=== PATIENT | male | born 1975 | race Caucasian/White ===

== ENCOUNTER 2019-07-14 06:00 | Day surgery (SDC) | payer OTHER ==
[~2019-07-14] VITALS: Ht 188 cm; Wt 83.9 kg
--- NOTE | ~2019-07-14 | O ---
[facility] [place] [address] OPERATIVE REPORT Name: PEREZ LAW Room #: 150-2 [facility] M..#: [id number] Admission: 07/14/19 Attend Phys: Gabriele Zee MD Discharge: Date of : 79 Report #: [id number] THIS REPORT FOR: //name// CC: FAM unknown Gabriele Zee DATE OF SERVICE: 07/14/2019 PREOPERATIVE DIAGNOSES: 1. Right ankle instability and synovitis. 2. Right ankle osteochondral lesion of the talus. POSTOPERATIVE DIAGNOSES: 1. Right ankle instability and synovitis. 2. Right ankle osteochondral lesion of the talus. PROCEDURE: 1. Right ankle arthroscopic debridement with synovectomy. 2. Right ankle microfracture osteochondral lesion with placement of BioCartilage and platelet-rich plasma. 3. Right ankle Brostrom-Woody lateral ligament reconstruction. SURGEON: Dr. Gabriele Zee. AUTOGLAZIER: Argelia Camejo. ANESTHESIA: General. ESTIMATED BLOOD LOSS: Minimal. DRAINS: No drains. TOURNIQUET TIME: One hour. DESCRIPTION OF PROCEDURE: The patient was brought to the operating room where he was placed under general anesthesia. Once under adequate general anesthesia, his right lower extremity was placed into the arthroscopic thigh support. The right lower extremity was then prepped and draped in sterile manner. The extremity was elevated, exsanguinated, tourniquet placed to [address] [facility] ankle distractor was then placed. An anteromedial and anterolateral arthroscopic portal was made in the usual fashion. Examination of the joint noted significant synovitis in the infra-syndesmotic region, synovectomy was performed there. There was a central located osteochondral lesion of the talus approximately 8 mm in diameter. This was debrided with the shaver to good bleeding subchondral bone and subsequently a microfracture pick was utilized to make 4 passes into the subchondral bone. Good bleeding was achieved with this. [facility] [address] [place] [address] OPERATIVE REPORT Name: PEREZ LAW Room #: 150-2 [facility] M..#: [id number] Admission: 07/14/19 Attend Phys: Gabriele Zee MD Discharge: Date of : 79 Report #: [id number] The wound was irrigated copiously and the irrigation was then removed from the joint. A wick was used to dry the region. Concurrently, the patient had his blood drawn, which was spun down to platelet-rich plasma on the back table. This was then mixed together mixed with the BioCartilage to form slurry. Once complete, the platelet-rich plasma/BioCartilage slurry was then placed into the osteochondral lesion, was then subsequently fixed into place with fibrin glue. Excellent fixation was achieved and verified post-application. The wound was irrigated copiously and arthroscopic equipment was removed. The extremity was removed from the arthroscopic thigh support. A curvilinear incision was made just distal to the fibula. This was dissected down through the soft tissue to the inferior extensor retinaculum, which was identified and tagged for later use. The anterior talofibular ligament and calcaneofibular ligament were then subsequently incised through the mid portions and repaired in shortened position with 0 Ethibond suture. The inferior extensor retinaculum was then advanced to the periosteum of the fibula as well with 0 Ethibond suture. Excellent fixation was achieved. Excellent stability was achieved. The wound was irrigated copiously and closed with 2-0 Vicryl in subcutaneous tissues and trav for the skin. Wound was dressed with Xeroform, 4 x 4s, sterile soft compressive dressing and a short leg cast was placed. Tourniquet was let down approximately one hour. Toes were pink and warm with good capillary refill. There were no complications from the procedure. The patient tolerated the procedure well and went to the recovery room without incident. By: [id number] Gabriele Zee MD /nt
[~2019-07-14 06:00] MED LIST: ADDERALL 20 MG20 MG PO; BUPROPION HCL100 MG PO; CELEXA 10 MG TA10 M1 PO; DIAZEPAM 10 MG10 M2 PO; IBUPROFEN 800800 M1 PO; MINIPRESS2 MG PO; OMEPRAZOLE 20 M20 M1 PO; PERCOCET 5-3251 EACH PO
[2019-07-14 06:22] VITALS: BP 104/71
[2019-07-14] MEDS ORDERED: PERCOCET 7.5-31 EAC1 PO (08:30)
[2019-07-14] MEDS ORDERED: ASPIRIN EC325 M1 PO (08:31)
[2019-07-14 08:59] VITALS: BP 104/71
== END 2019-07-14 09:30 | disposition home or self-care (01) ==
LOC: OR 06:00 → TBA 06:01 → OR 08:40
DX: M93.271 Osteochondritis dissecans, right ankle and joints of right foot (principal); M25.371 Other instability, right ankle; M65.871 Other synovitis and tenosynovitis, right ankle and foot; K21.9 Gastro-esophageal reflux disease without esophagitis; F32.9 Major depressive disorder, single episode, unspecified; F41.9 Anxiety disorder, unspecified; Z98.890 Other specified postprocedural states; Z87.891 Personal history of nicotine dependence; Z79.899 Other long term (current) drug therapy; Z79.82 Long term (current) use of aspirin
CPT/HCPCS: 50010; 50101; 50386; 51038; 51291; 51412; 51436; 51647; 54170; 56524; 56526; 56529; 57091; 57103; 70005